=== PATIENT | female | born 1970 | race Caucasian/White ===

== ENCOUNTER 2019-10-30 03:10 | Emergency (ER) | payer SELFPAY ==
--- NOTE | 2019-10-30 04:07 | ED Physician Documentation ---
PD HPI HEAD INJURY - Stated complaint Stated Complaint: HEAD LAC - Chief complaint Chief Complaint: Trauma Hd/Nk - History obtained from History obtained from: Patient - History of Present Illness Mechanism of head injury: Blow Where head injury occurred: A house / apartment Timing - onset: How many minutes ago (approximately 20-30 minutes [employer]) Pain level now: 0 Location of injury: Front Associated symptoms: No: LOC, AMS, Nausea / vomiting, Neck pain Contributing factors: No: Anticoagulated, Intoxicated Similar symptoms before: Has not had sx before Recently seen: Not recently seen - Additional information Additional information: patient is visiting [facility]. struck forehead on wrought iron framing of a bunk bed, sustaining forehead laceration as a result. denies LOC, denies BURNS except for pain localized to site if injury. Review of Systems Eyes: reports: Reviewed and negative Skin: reports: Laceration (s) Musculoskeletal: denies: Neck pain Neurologic: reports: Head injury. denies: Headache, LOC PD PAST MEDICAL HISTORY - Past Medical History Past Medical History: Yes Psych: Depression, Anxiety - Past Surgical History Past Surgical History: Yes Ortho: Other - Present Medications Home Medications: Ambulatory Orders Medication Instructions Recorded Confirmed DULoxetine [Cymbalta] 120 mg PO DAILY 10/30/19 10/30/19 lamoTRIgine [Lamictal] 300 mg PO DAILY 10/30/19 10/30/19 - Allergies Allergies/Adverse Reactions: Allergies Allergy/AdvReac Type Severity Reaction Status Date / Time No Known Drug Allergies Allergy Verified 10/30/19 03:31 - Social History Does the pt smoke?: No Smoking Status: Never smoker Does the pt drink ETOH?: No Does the pt have substance abuse?: No - Immunizations Immunizations are current?: Yes - POLST Patient has POLST: No PD ED PE NORMAL - Vitals Vital signs reviewed: Yes - General General: Alert and oriented X 3, No acute distress, Well developed/nourished - HEENT HEENT: PERRL, EOMI - Neck Neck: No bony TTP PD ED PE EXPANDED - HEENT HEENT Visual: 1 - laceration (4 cm length) Results - Vitals Vitals: Oxygen O2 Source Room air Procedures - Laceration (location) Face Length in cm: 4 Wound type: Linear, Into subcut fat, Clean Neurovascular status: Sensory intact, Motor intact, Vascular intact Tendon involvement: Tendon intact Anesthesia: Lidocaine 1% Wound Preparation: Chlorhexadine, Irrigated copiously NS, To the base. No: FB identified Skin layer closure: Nylon, Running Other: Patient tolerated well, No complications, Neurovascular intact, Tetanus UTD Complexity: Simple PD MEDICAL DECISION MAKING - ED course Complexity details: considered differential, d/w patient Departure - Departure Disposition: 01 Home, Self Care Clinical Impression: Laceration of scalp Condition: Good Instructions: ED Laceration Facial Sutr Tape Comments: Follow up with your primary care provider in 6-7 days for suture removal Discharge Date/Time: 10/30/19 05:40
[2019-10-30] MEDS: LIDOCAINE 1% 2 ML VIAL SUBQ STA (04:28)
[2019-10-30] MEDS: BACITRACIN ZINC OINT 1 PACKET TOP STA (05:37)
[2019-10-30 05:41] VITALS: BP 137/92
== END 2019-10-30 05:40 | disposition home or self-care (01) ==
LOC: ED 03:10
DX: S01.81XA Laceration without foreign body of other part of head, initial encounter (principal); W06.XXXA Fall from bed, initial encounter; W22.09XA Striking against other stationary object, initial encounter; Y92.032 Bedroom in apartment as the place of occurrence of the external cause
CPT/HCPCS: 12013; 99281; 99282; A9270